=== PATIENT | female | born 1975 | race Caucasian/White ===

== ENCOUNTER 2019-12-16 09:54 | Inpatient (IN) ==
[2019-12-16] MEDS ORDERED: SODIUM CHLORIDE 0.9% 1,000 ML IV STA ×2 (10:24→11:35)
[2019-12-16] MEDS ORDERED: ONDANSETRON 4 MG/2 ML VIAL IV STA (10:24)
[2019-12-16 10:36] LABS: Basophils # 0.1 10*3/uL (0.0-0.2); Basophils % 0.6 % (0.0-0.8); Eosinophils # 0.1 10*3/uL (0.0-0.87); Eosinophils % 1.1 % (0.00-10.9); Hematocrit 45.8 VOL% (35.7-47.0); Hemoglobin 15.2 GM/DL (12.0-16.0); Immature Granulocytes % 0.5 %; Immature Granulocytes Absolute 0.06 #; Lymphocytes % 16.4 % (21.3-54.2); Mean Corpuscular HGB Conc 33.2 GM/DL (32-36); Mean Corpuscular Volume 104.3 FL (87-102); Mean Platelet Volume 9.8 FL (9.6-12.0); Monocytes % 6.4 % (1.7-12.7); Platelet Count 181 T/CUMM (130-400); Red Blood Count 4.39 MC/CUMM (3.8-5.5); White Blood Count 12.2 T/CUMM (4-12)
[2019-12-16 10:40] LABS: Apearance,Urine Slightly Hazy (Clear); Bilirubin,Urine Negative (Negative); Blood, Urine Negative (Negative); Glucose,Urine (UA) Negative (Negative); Ketones,Urine 80 mg/dL (Negative); Mucus,Urine Occasional /LPF (Occasional); Nitrite,Urine Negative (Negative); Protein,Urine 100 MG/DL; RBC,Urine 3 /HPF (0-4); Squamous Epithelial Cell,Urine Few /HPF (0-10); Urine Color Amber (Yellow); Urine Specific Gravity 1.035 (1.001-1.035); Urine Urobilinogen < 2.0 EU/DL (0.2-1.0); WBC,Urine 12 /HPF (0-6)
[2019-12-16 10:59] LABS: Albumin 4.2 G/DL (3.4-5.0); Bilirubin,Total 1.1 MG/DL (0.2-1.0); Calcium 8.9 MG/DL (8.5-10.1); Total Protein 7.7 G/DL (6.4-8.3)
[2019-12-16 11:17] LABS: Barbiturates Screen,Urine Negative (Negative); Benzodiazepines Screen,Urine Negative (Negative); Cannabinoid Screen,Urine Positive (Negative); Opiate Screen,Urine Negative (Negative); Phencyclidine Screen,Urine Negative (Negative)
[2019-12-16] MEDS ORDERED: HYDROmorphone 2 MG/1 ML VIAL IV STA ×2 (12:03→14:28)
[2019-12-16] MEDS ORDERED: GLUCAGON 1 MG VIAL IM PRN (12:49)
[2019-12-16] MEDS ORDERED: hydrALAZINE 20 MG/1 ML VIAL IV PRN (12:49)
[2019-12-16] MEDS: SODIUM CHLORIDE 0.9% 1,000 ML IV SCH (13:31)
[2019-12-16 16:48] LABS: Risk Ratio 2.46; Thyroid Stimulating Hormone 1.4 uIU/ml (0.358-3.74); VLDL CHOLESTEROL 22.8 MG/DL
[2019-12-16] MEDS: NICOTINE 21 MG/24 HR PATCH TRANSDERM PRN (17:03)
[2019-12-16] MEDS: chlordiazePOXIDE 25 MG CAPSULE PO SCH ×2 (17:03→20:50)
[2019-12-16] MEDS: HYDROmorphone 2 MG/1 ML VIAL IV PRN ×2 (17:37→20:50)
[2019-12-16] MEDS: ENOXAPARIN 40 MG/0.4 ML SYRINGE SUBCUT SCH (20:50)
[2019-12-17] MEDS: HYDROmorphone 2 MG/1 ML VIAL IV PRN ×7 (00:20→21:29)
[2019-12-17] MEDS: ONDANSETRON 4 MG/2 ML VIAL IV PRN ×2 (05:25→14:47)
[2019-12-17 06:29] LABS: Basophils % 0.4 % (0.0-0.8); Eosinophils # 0.1 10*3/uL (0.0-0.87); Eosinophils % 0.9 % (0.00-10.9); Hematocrit 37.4 VOL% (35.7-47.0); Hemoglobin 12.5 GM/DL (12.0-16.0); Immature Granulocytes % 0.6 %; Immature Granulocytes Absolute 0.07 #; Lymphocytes # 1.3 10*3/uL (1.4-4.0); Lymphocytes % 12.4 % (21.3-54.2); Mean Corpuscular HGB Conc 33.4 GM/DL (32-36); Mean Corpuscular Volume 103.9 FL (87-102); Mean Platelet Volume 10.2 FL (9.6-12.0); Neutrophils % 77.7 % (38.7-73.9); Platelet Count 134 T/CUMM (130-400); Red Cell Distribution Width 12.1 % (9.3-17.3); White Blood Count 10.8 T/CUMM (4-12)
[2019-12-17 06:50] LABS: Hypochromasia Slight; Macrocytosis Slight; Platelet Estimate Adequate
[2019-12-17 06:51] LABS: Albumin 3.1 G/DL (3.4-5.0); Bilirubin,Total 0.8 MG/DL (0.2-1.0); Calcium 7.8 MG/DL (8.5-10.1); Osmolality,Calculated 271.5 MOS/KG (273-304); Total Protein 5.8 G/DL (6.4-8.3)
[2019-12-17] MEDS: chlordiazePOXIDE 25 MG CAPSULE PO SCH ×3 (08:08→21:30)
[2019-12-17] MEDS: SODIUM CHLORIDE 0.9% 1,000 ML IV SCH ×3 (08:09→15:12)
[2019-12-17] MEDS: NICOTINE 21 MG/24 HR PATCH TRANSDERM PRN (17:49)
[2019-12-17] MEDS: ENOXAPARIN 40 MG/0.4 ML SYRINGE SUBCUT SCH (21:30)
[2019-12-18] MEDS: DEXTROSE 10% 250 ML BAG IV PRN ×2 (00:21→18:30)
[2019-12-18] MEDS: HYDROmorphone 2 MG/1 ML VIAL IV PRN ×7 (00:27→21:10)
[2019-12-18] MEDS: ONDANSETRON 4 MG/2 ML VIAL IV PRN (00:27)
[2019-12-18] MEDS: SODIUM CHLORIDE 0.9% 1,000 ML IV SCH ×2 (01:41→08:05)
[2019-12-18] MEDS: chlordiazePOXIDE 25 MG CAPSULE PO SCH ×3 (08:05→21:10)
[2019-12-18 08:43] LABS: Calcium 7.8 MG/DL (8.5-10.1); Osmolality,Calculated 270.5 MOS/KG (273-304)
[2019-12-18 08:47] LABS: Basophils % 0.3 % (0.0-0.8); Eosinophils # 0.1 10*3/uL (0.0-0.87); Eosinophils % 1.1 % (0.00-10.9); Hematocrit 37.2 VOL% (35.7-47.0); Hemoglobin 11.9 GM/DL (12.0-16.0); Immature Granulocytes % 0.6 %; Immature Granulocytes Absolute 0.07 #; Lymphocytes # 1.7 10*3/uL (1.4-4.0); Lymphocytes % 13.3 % (21.3-54.2); Mean Corpuscular Volume 108.1 FL (87-102); Mean Platelet Volume 10.8 FL (9.6-12.0); Monocytes % 9.5 % (1.7-12.7); Neutrophils % 75.2 % (38.7-73.9); Platelet Count 135 T/CUMM (130-400); Red Blood Count 3.44 MC/CUMM (3.8-5.5); Red Cell Distribution Width 12.3 % (9.3-17.3); White Blood Count 12.7 T/CUMM (4-12)
[2019-12-18 09:43] LABS: Hypochromasia Slight; Platelet Estimate Normal
[2019-12-18] MEDS: NICOTINE 21 MG/24 HR PATCH TRANSDERM PRN (10:55)
[2019-12-18] MEDS ORDERED: MAGNESIUM SULF RIDER 4 GM in PREMIX 1 EACH IV PRN (12:21)
[2019-12-18] MEDS ORDERED: MAGNESIUM SULF RIDER 2 GM in PREMIX 1 EACH IV PRN (12:21)
[2019-12-18] MEDS: SODIUM CHLOR 0.9% KCL 40 MEQ 40 MEQ/1,000 ML BAG IV SCH (12:25)
[2019-12-18] MEDS: PANTOPRAZOLE 40 MG VIAL IV SCH (13:02)
[2019-12-18] MEDS ORDERED: POTASSIUM PHOSPHATE 30 MMOL in SODIUM CHLORIDE 0.9% 250 ML IV ONE (14:00)
[2019-12-18] MEDS: ENOXAPARIN 40 MG/0.4 ML SYRINGE SUBCUT SCH (21:10)
[2019-12-19] MEDS: HYDROmorphone 2 MG/1 ML VIAL IV PRN ×6 (00:17→21:56)
[2019-12-19] MEDS: DEXTROSE 10% 250 ML BAG IV PRN (00:43)
[2019-12-19] MEDS: SODIUM CHLOR 0.9% KCL 40 MEQ 40 MEQ/1,000 ML BAG IV SCH ×4 (06:15→16:45)
[2019-12-19 08:08] LABS: Basophils % 0.4 % (0.0-0.8); Eosinophils # 0.2 10*3/uL (0.0-0.87); Eosinophils % 1.5 % (0.00-10.9); Hematocrit 35.3 VOL% (35.7-47.0); Hemoglobin 11.6 GM/DL (12.0-16.0); Immature Granulocytes % 0.8 %; Immature Granulocytes Absolute 0.08 #; Lymphocytes % 9.9 % (21.3-54.2); Mean Corpuscular HGB Conc 32.9 GM/DL (32-36); Mean Platelet Volume 9.8 FL (9.6-12.0); Monocytes % 12.8 % (1.7-12.7); Neutrophils % 74.6 % (38.7-73.9); Platelet Count 155 T/CUMM (130-400); Red Blood Count 3.33 MC/CUMM (3.8-5.5); Red Cell Distribution Width 12.2 % (9.3-17.3)
[2019-12-19] MEDS: chlordiazePOXIDE 25 MG CAPSULE PO SCH ×3 (08:34→20:40)
[2019-12-19] MEDS: PANTOPRAZOLE 40 MG VIAL IV SCH (08:34)
[2019-12-19] MEDS: ONDANSETRON 4 MG/2 ML VIAL IV PRN ×2 (08:35→15:40)
[2019-12-19] MEDS: NICOTINE 21 MG/24 HR PATCH TRANSDERM PRN (08:35)
[2019-12-19 08:45] LABS: Calcium 7.8 MG/DL (8.5-10.1); Osmolality,Calculated 271.5 MOS/KG (273-304)
[2019-12-19] MEDS ORDERED: MAGNESIUM SULF RIDER 2 GM in PREMIX 1 EACH IV PRN (09:13)
[2019-12-19] MEDS: ENOXAPARIN 40 MG/0.4 ML SYRINGE SUBCUT SCH (20:40)
[2019-12-20] MEDS: HYDROmorphone 2 MG/1 ML VIAL IV PRN ×3 (00:51→08:43)
[2019-12-20] MEDS: SODIUM CHLOR 0.9% KCL 40 MEQ 40 MEQ/1,000 ML BAG IV SCH ×3 (01:40→10:30)
[2019-12-20] MEDS: chlordiazePOXIDE 25 MG CAPSULE PO SCH (08:42)
[2019-12-20] MEDS: PANTOPRAZOLE 40 MG VIAL IV SCH (08:43)
[2019-12-20] MEDS ORDERED: CIPROFLOXACIN 500 MG TABLET PO SCH (09:00)
[2019-12-20 11:47] VITALS: BP 133/70
[2019-12-20] MEDS ORDERED: LIPASE/PROTEASE/AMYLASE 4,200 UNITS CAPSULE PO SCH (12:00)
[2019-12-20] MEDS ORDERED: buPROPion 100 MG TABLET PO SCH (21:00)
== END 2019-12-20 13:10 | disposition home or self-care (01) | DRG 439 ==
LOC: N.ED 09:54 → SUATTDRO 12:48 → N.EDINP 12:48 → N.3E 15:37
PROVIDERS: ADMIT Internal Medicine; ATTEND Family Medicine